=== PATIENT | female | born 1940 ===

== ENCOUNTER → 2017-06-03 | Outpatient (CLI) | payer OTHER | LOC: SBRMNEURO 20:00 | PROVIDERS: ATTEND Physician Assistant Medical | DX: G47.33 Obstructive sleep apnea (adult) (pediatric) (principal); G47.36 Sleep related hypoventilation in conditions classified elsewhere ==

== ENCOUNTER → 2017-07-19 | Outpatient (CLI) | payer OTHER | LOC: SBRMNEURO 20:00 | PROVIDERS: ATTEND Internal Medicine Pulmonary Disease | DX: G47.33 Obstructive sleep apnea (adult) (pediatric) (principal); G47.39 Other sleep apnea; G47.36 Sleep related hypoventilation in conditions classified elsewhere ==